=== PATIENT | male | born 1995 | race Caucasian/White ===

== ENCOUNTER 2020-09-30 06:25 | Day surgery (SDC) | payer BC ==
[2020-09-29 16:47] LABS: Absolute Lymphocytes (CBC) 1.2 K/uL (0.7-4.9); Basophils % 0.7 % (0-1.3); Hematocrit 40.2 % (39.6-49.0); Lymphocytes % 15.7 % (15.3-44.8); MPV 7.6 fL (7.6-11.3); RBC Red Blood Cell Count 4.37 M/uL (4.33-5.43)
[2020-09-29 19:11] LABS: ALT/SGPT 30 U/L (12-78); AST/SGOT 14 U/L (15-37); Albumin 3.9 g/dL (3.4-5.0); Alkaline Phosphatase 79 U/L (45-117); Amylase 31 U/L (25-115); BUN Blood Urea Nitrogen 13 mg/dL (7-18); Bicarbonate 30 mmol/L (21-32); Bilirubin Direct 0.1 mg/dL (0-0.2); Bilirubin Total 0.5 mg/dL (0.2-1.0); Glucose Level 89 mg/dL (74-106); Potassium 4.1 mmol/L (3.5-5.1); Protein, Total 8.7 g/dL (6.4-8.2); Sodium Level 139 mmol/L (136-145)
[2020-09-30] MEDS ORDERED: CEFOXITIN/SWI 1gm 1 GM/10 ML SYR ONE (07:04)
[2020-09-30] MEDS ORDERED: Ringers Lactate 1,000 ML IV ONE (07:04)
[2020-09-30] MEDS ORDERED: FENTANYL CITR 100 MCG/2 ML ONE ×2 (07:20→08:11)
[2020-09-30] MEDS ORDERED: propofoL 200 MG/20 ML VIAL IV ONE (07:21)
[2020-09-30] MEDS ORDERED: MIDAZOLAM HCL 2 MG/2 ML INJ ONE (07:21)
[2020-09-30] MEDS ORDERED: ONDANSETRON 4 MG/2 ML VIAL ONE ×2 (07:22→09:51)
[2020-09-30] MEDS ORDERED: GLYCOPYRROLATE 0.2 MG/ML SYR ONE (07:39)
[2020-09-30] MEDS ORDERED: MEPERIDINE HCL 25 MG/ML SYR ONE (09:41)
[2020-09-30 09:46] VITALS: O2SAT 99
[2020-09-30 10:14] VITALS: TEMP 97
[2020-09-30] MEDS ORDERED: HYDROCODONE/APAP 7.5/325 MG TAB ONE (10:33)
--- NOTE | 2020-09-30 11:13 | OP ---
Date of Procedure: 09/30/2020 Surgeon: Casimiro Frost MD Heat Treat Supervisor: JEFFERY Lamar. Preoperative Diagnosis: Symptomatic cholelithiasis. Postoperative Diagnosis: Chronic cholecystitis and cholelithiasis, normal appendix. Procedures Performed: Diagnostic laparoscopy, laparoscopic cholecystectomy. Estimated Blood Loss: Minimal. Specimen: Gallbladder. Finding: As above. Anesthesia: General. Complications: None. Disposition: The patient tolerated the procedure in stable condition and taken to Recovery in good g eneral condition. Procedure In Detail: The patient was brought to the OR and placed in supine position. General anest hesia begun. The patient was prepped and draped in the usual sterile fashion. Marcaine 0.5% was inf iltrated locally. A 15-blade was used to make a 1 cm supraumbilical midline incision. Subcutaneous tissues were divided. Fascia was identified and divided. A #1 Vicryl stay suture was placed. Perit grey cavity was entered with sharp and blunt dissection. A 12 mm trocar was placed into the periton eal cavity under direct vision. Pneumoperitoneum was established and then three 5 mm trocars placed, 1 in the epigastrium just to the right of midline and 2 in the right subcostal region. Laparoscopy revealed a very distended and inflamed gallbladder with omental adhesions, which were taken down with sharp and blunt dissection. Bleeding controlled with cautery. The appendix was visualized and was normal. There was no evidence of any inflammation at all present. Subsequently, the gallbladder was aspirated of bile to allow for better manipulation and then fundus was retracted superiorly. After adequate dissection, infundibulum was identified and retracted inferolaterally. Cystic duct and cyst ic artery were dissected with sharp and blunt dissection, and then clips placed and both structures d ivided. Cautery was used to remove the gallbladder from the liver bed. Bleeding on the liver bed wa s controlled with cautery. There was oozing from the liver bed and after the gallbladder was removed via EndoCatch bag. Right upper quadrant was irrigated. Effluent was clear. There was minimal oozi ng noted from the gallbladder bed. Avitene was used with complete control of any oozing and the effl uent was clear. There was no evidence of bleeding or bile leakage appreciated, and no other findings were noted. Subsequently, all trocars were removed under direct vision. Stay sutures were tied to each other to reapproximate the fascial defect. Subcutaneous wounds were irrigated. Bleeding contro lled with cautery. A 3-0 chromic was used to approximate the subcutaneous tissue and staple was used to close the skin. Sterile dressing was applied. The patient was awakened and taken to Recovery in good general condition. Discharge Note: The patient will go to Day Surgery and home when stable. Disposition: Home. Condition: Stable. Discharge Instructions: Resume home medications and diet. Activity as tolerated. No heavy lifting. Remove outer dressing in 2 days. Shower. Keep wound clean and dry. Follow up in my office in a [facility]. Call for appointment. Tylenol No.3 one tablet p.o. q.4 p.r.n. pain, Cipro 500 mg p.o. q.12. /MODL Voice ID: [id number] Report ID: [id number]
[2020-09-30 11:38] VITALS: BP 121/74
== END 2020-09-30 11:30 | disposition home or self-care (01) ==
LOC: OR 06:25
PROVIDERS: ATTEND Surgery
PROC: 0FT44ZZ Resection of Gallbladder, Percutaneous Endoscopic Approach (ICD-10-PCS; principal; 2020-09-30 07:30)
PROC: 0FJ44ZZ Inspection of Gallbladder, Percutaneous Endoscopic Approach (ICD-10-PCS; 2020-09-30 07:30)
DX: K80.10 Calculus of gallbladder with chronic cholecystitis without obstruction (principal); R10.31 Right lower quadrant pain
CPT/HCPCS: 85025; 80048; 36415; 82150; 80076; 88304; 47562; 49320; J2704; J2250; J3010 ×2; J2175; J7120; J2405 ×2